=== PATIENT | male | born 1950 | race Caucasian/White ===

== ENCOUNTER → 2021-04-16 | Outpatient (CLI) | payer MEDICARE ==
[~2021-04-16] MED LIST: OMEP20CA4 PO; SIMV-261 PO
== END | disposition home or self-care (01) ==
LOC: RADPV 09:03
PROVIDERS: ATTEND Nurse Practitioner
DX: K80.10 Calculus of gallbladder with chronic cholecystitis without obstruction (principal); K76.89 Other specified diseases of liver; N28.1 Cyst of kidney, acquired; K43.9 Ventral hernia without obstruction or gangrene
CPT/HCPCS: 76700